=== PATIENT | female | born 2000 | race Caucasian/White ===

== ENCOUNTER 2019-06-06 20:59 | Emergency (ER) | END 2019-06-07 00:16 | disposition left against medical advice (07) | LOC: ER 20:59 | DX: Z53.21 Procedure and treatment not carried out due to patient leaving prior to being seen by health care provider (principal) ==

== ENCOUNTER 2020-02-20 19:52 | Emergency (ER) | payer OTHER ==
--- NOTE | 2020-02-20 20:14 | ER Document Report ---
ED Medical Screen (RME) - General Chief Complaint: Urinary Problem Stated Complaint: URINARY COMPLAINTS/21 WEEKS Time Seen by Provider: 02/20/20 20:08 Mode of Arrival: Ambulatory Information source: Patient Notes: 19-year-old female presented to ED for complaint of right flank pain. She [facility] 10 [facility]. She states she has been going over there since she was 10 weeks . She is 21 weeks 6 days . She states that they have put her on 4 different antibiotics. She states every time she goes to the emergency room they do urine and tell her to UTI. She states have not drawn any blood have not done any other testing. I have ordered blood urine and a renal ultrasound and she will be seen by another provider. She states she does have a history of UTIs cholecystectomy appendectomy and 2 C-sections. She states she is not having any vaginal bleeding or any vaginal discharge. She states she does have frequency urgency and pain with urination. I have greeted and performed a rapid initial assessment of this patient. A comprehensive ED assessment and evaluation of the patient, analysis of test results and completion of medical decision making process will be conducted by an additional ED providers. - Related Data Allergies/Adverse Reactions: latex Allergy (Verified 02/20/20 20:09) Physical Exam - Vital signs Vitals: Temp Pulse BP Pulse Ox 98.7 F 101 H 133/80 H 99 02/20/20 20:07 02/20/20 20:07 02/20/20 20:07 02/20/20 20:07 Course - Vital Signs Vital signs: Temp Pulse Resp BP Pulse Ox 98.7 F 101 H 133/80 H 99 02/20/20 20:07 02/20/20 20:07 02/20/20 20:07 02/20/20 20:07
--- NOTE | 2020-02-20 21:20 | RADIOLOGY REPORT (SQ) ---
EXAM DESCRIPTION: RadLex: US RETROPERITONEUM CLINICAL HISTORY: 19 years Female; Right flank pain UTI for multiple weeks; TECHNIQUE: Bilateral renal ultrasound was performed. COMPARISON: None. FINDINGS: Visualized portions of IVC and aorta are unremarkable. Right kidney: 12.8 x 4.8 x 5 cm. No hydronephrosis or shadowing calculi. Left kidney: 12.6 x 6.2 x 5.1 cm. No hydronephrosis or shadowing calculi. Bladder: Nondistended, 25 mL Spleen is enlarged, 14.9 cm long. IMPRESSION: 1. Normal renal sonogram. 2. Splenomegaly
[2020-02-20 21:42] LABS: ABSOLUTE EOSINOPHILS # (AUTO) 0.2 10^3/uL (0.0-0.6); ABSOLUTE LYMPHOCYTES (AUTO) 1.8 10^3/uL (0.5-4.7); ABSOLUTE MONOCYTES (AUTO) 0.4 10^3/uL (0.1-1.4); ABSOLUTE NEUT (AUTO) 5.4 10^3/uL (1.7-8.2); BASOPHILS % (AUTO) 0.2 % (0-2); EOSINOPHILS % (AUTO) 2.6 % (0-6); HEMOGLOBIN 12.7 g/dL (12.0-15.5); LYMPHOCYTES % (AUTO) 22.8 % (13-45); MEAN CORPUSCULAR HEMOGLOBIN 30.8 pg (27.0-33.4); MEAN CORPUSCULAR HGB CONC 34.5 g/dL (32.0-36.0); MEAN CORPUSCULAR VOLUME 90 fl (80-97); MONOCYTES % (AUTO) 5.3 % (3-13); PLATELET COUNT 165 10^3/uL (150-450); RED BLOOD COUNT 4.13 10^6/uL (3.72-5.28); RED CELL DISTRIBUTION WIDTH 14.2 % (11.5-14.0); SEGMENTED NEUTROPHILS % (AUTO) 69.1 % (42-78); TOTAL CELLS COUNTED % (AUTO) 100 %; WHITE BLOOD COUNT 7.9 10^3/uL (4.0-10.5)
[2020-02-20 21:55] LABS: APPEARANCE,URINE CLEAR; BILIRUBIN,URINE NEGATIVE (NEGATIVE); COLOR,URINE YELLOW; GLUCOSE, URINE NEGATIVE (NEGATIVE); KETONES,URINE NEGATIVE (NEGATIVE); LEUKOCYTE ESTERASE,URINE TRACE (NEGATIVE); NITRITE,URINE NEGATIVE (NEGATIVE); PROTEIN,URINE NEGATIVE (NEGATIVE); URINE SPECIFIC GRAVITY 1.026
[2020-02-20 21:59] LABS: ALBUMIN 3.7 g/dL (3.5-5.0); ALKALINE PHOSPHATASE 55 U/L (38-126); ANION GAP 7 (5-19); ASPARTATE AMINO TRANSFERASE 21 U/L (14-36); BILIRUBIN,DIRECT 0.3 mg/dL (0.0-0.4); BILIRUBIN,TOTAL 0.5 mg/dL (0.2-1.3); BLOOD UREA NITROGEN 6 mg/dL (7-20); CALCIUM 8.8 mg/dL (8.4-10.2); CARBON DIOXIDE 23 mmol/L (22-30); CHLORIDE 105 mmol/L (98-107); GLUCOSE 90 mg/dL (75-110); POTASSIUM 4.4 mmol/L (3.6-5.0); TOTAL PROTEIN 6.6 g/dL (6.3-8.2)
--- NOTE | 2020-02-21 02:12 | RADIOLOGY REPORT (SQ) ---
Obstetric ultrasound: 02/21/2020 1:09 AM CDT HISTORY: 19-year-old female with , lower back pain. TECHNIQUE: Multiple grayscale and color Doppler images of the pelvis were obtained transabdominally. COMPARISON: None available for this . FINDINGS: A single intrauterine gestation is seen, which is cephalic in position. The placenta is posterior in location, and may be low lying.. The cervix measures at least 4.5 cm in length. The estimated heart rate is approximately 145 bpm. KIRIT is subjectively within normal limits the deepest vertical pocket of at least 3.8 cm. The following measurements were obtained: BPD: 4.4 cm, consistent with 19 weeks and 1 day(s). HC: 16.5 cm, consistent with 19 weeks and 2 day(s). AC: 13.8 cm, consistent with 19 weeks and 2 day(s). FL: 3.0 cm, consistent with 19 weeks and 2 day(s). The estimated weight is approximately 281 g +/- 15%. The fetus overall measures at the 87%. The fetus measures at 19 weeks and 2 day(s) by AUA, consistent with an estimated due date of 07/15/20. IMPRESSION: A single, live intrauterine gestation is seen which is currently cephalic in position. The fetus measures at 19 weeks and 2 day(s) by AUA, consistent with an estimated due date of 07/15/20. 2.Detailed anatomic assessment was not performed. 3. The placenta may be low lying and can be followed on subsequent imaging. Interval follow-up with an obstetric care provider is recommended.
--- NOTE | 2020-02-21 05:04 | ER Document Report ---
ED General - General Chief Complaint: Flank Pain Stated Complaint: URINARY COMPLAINTS/21 WEEKS Time Seen by Provider: 02/20/20 20:08 Primary Care Provider: [facility] [Provider Group] - Follow up as needed Mode of Arrival: Ambulatory Information source: Patient - HPI Notes: Patient is a 19-year-old female who is 22 weeks and presents with right flank pain for the past week. Patient has been seen at [facility] multiple times in the past 10 weeks for urinary symptoms. She was diagnosed with a UTI and has been treated with 4 different antibiotics over this time. She continues to have urinary symptoms of dysuria, urinary pressure, urinary frequency, and voiding small amounts. Patient had an episode of vaginal bleeding 2 weeks ago but has not had any bleeding since. She denies any vaginal discharge. Patient reports nausea but attributes this to her . She denies fever, chills, nausea, diarrhea, chest pain, shortness of breath. Patient is a former smoker but she denies any alcohol or drug use. Patient has a history of cholecystectomy and appendectomy. - Related Data Allergies/Adverse Reactions: latex Allergy (Verified 02/20/20 20:09) Past Medical History - General Information source: Patient - Social History Smoking Status: Former Smoker Chew tobacco use (# tins/day): No Frequency of alcohol use: None Drug Abuse: None Family History: Reviewed & Not Pertinent Past Surgical History: Reports: Hx Appendectomy, Hx Section, Hx Cholecystectomy Review of Systems - Review of Systems Constitutional: No symptoms reported EENT: No symptoms reported Cardiovascular: No symptoms reported Respiratory: No symptoms reported Gastrointestinal: See HPI Genitourinary: See HPI Female Genitourinary: No symptoms reported Musculoskeletal: No symptoms reported Skin: No symptoms reported Hematologic/Lymphatic: No symptoms reported Neurological/Psychological: No symptoms reported Physical Exam - Vital signs Vitals: Temp Pulse BP Pulse Ox 98.7 F 101 H 133/80 H 99 02/20/20 20:07 02/20/20 20:07 02/20/20 20:07 02/20/20 20:07 - Notes Notes: PHYSICAL EXAMINATION: VITALS: Vitals reviewed and within normal limits. GENERAL: Well-appearing, well-nourished and in no acute distress. HEAD: Atraumatic, normocephalic. EYES: Pupils equal round and reactive to light, extraocular movements intact, sclera anicteric, conjunctiva are normal. ENT: nares patent, oropharynx clear without exudates. Dry mucous membranes. NECK: Normal range of motion, supple without lymphadenopathy. LUNGS: Breath sounds clear to auscultation bilaterally and equal. No wheezes rales or rhonchi. HEART: Regular rate and rhythm without murmurs. ABDOMEN: Diffuse tenderness to the right abdomen and flank. Soft and normoactive bowel sounds. No guarding, no rebound. No masses appreciated. Negative CVA tenderness EXTREMITIES: Normal range of motion, no pitting or edema. No cyanosis. NEUROLOGICAL: No focal neurological deficits. Moves all extremities spontaneous ly and on command. PSYCH: Normal mood, normal affect. SKIN: Warm, Dry, normal turgor, no rashes or lesions noted. Course - Re-evaluation Re-evalutation: Patient is a 19-year-old female who is 22 weeks and presents for right flank pain for the past week. On exam, diffuse tenderness is noted to the right abdomen. Patient is afebrile and vital signs are normal. Renal ultrasound is negative with no signs of hydronephrosis or kidney stones. OB ultrasound shows 19-week and 2-day intrauterine , no signs of placenta previa. Lab work is unremarkable with normal WBC and normal UA. Discussed results with patient and believe her symptoms are bowel-related. Patient will be discharged home with prescriptions for Pepcid and Reglan. Return precautions given. - Vital Signs Vital signs: Temp Pulse Resp BP Pulse Ox 98.4 F 68 16 137/84 H 98 02/21/20 06:47 02/21/20 06:47 02/21/20 06:47 02/21/20 06:47 02/21/20 06:47 - Laboratory Result Diagrams: 02/20/20 21:00 02/20/20 21:00 Laboratory results interpreted by me: 02/20/20 02/20/20 02/20/20 21:00 21:00 21:00 RDW 14.2 H Sodium 135.4 L BUN 6 L Creatinine 0.41 L Urine Urobilinogen 2.0 H Ur Leukocyte Esterase TRACE H Discharge - Discharge Clinical Impression: Right flank pain, Vomiting affecting Abdominal pain Qualifiers: Abdominal location: generalized Qualified Code(s): R10.84 - Generalized abdominal pain Condition: Stable Disposition: HOME, SELF-CARE Additional Instructions: Take prescriptions as prescribed. Can take benadryl 25mg as needed for supplement for nausea. Return if symptoms worsen or if you begin to have fever, persistent vomiting, severe abdominal pain. Follow up with [facility] and primary care physician. Abdominal Pain There are many causes of abdominal pain. Pain can mean a serious problem requiring surgery (such as appendicitis). It can also be an innocent problem that goes away on its own (such as a viral infection). Often, time must pass to determine the cause of pain. The physician does not feel that hospitalization is necessary, at present. Things may change within the next 24 hours. Call the doctor or come back for re- examination if any problems occur, such as: (1) Pain that becomes more severe, steady, or becomes concentrated in one specific area. Also, pain that is more severe with movement or coughing. (2) Vomiting that persists or becomes more frequent. (3) Blood in the vomitus, urine, or bowel movements. Blood in the stool may have a tarry or black appearance. (4) Shaking chills or fever greater than 100 degrees F. (5) The abdomen becomes more distended or swollen. (6) Bowel movements cease. (7) Failure to improve as expected. Prescriptions: Famotidine [Pepcid 20 mg Tablet] 20 mg PO BID #12 tablet Metoclopramide HCl [Reglan] 1 - 2 tab PO Q6 PRN #20 tablet PRN Reason: Referrals: [facility] [Provider Group] - Follow up as needed
[2020-02-21] MEDS ORDERED: METOCLOPRAMIDE HCL 10 MG TABLET PO ONE (05:17)
[2020-02-21] MEDS ORDERED: FAMOTIDINE 20 MG TABLET PO ONE (05:17)
[2020-02-21 07:31] VITALS: BP 107/62
== END 2020-02-21 07:31 | disposition home or self-care (01) ==
LOC: ER 19:52
DX: O21.8 Other vomiting complicating pregnancy (principal); R10.84 Generalized abdominal pain; R39.89 Other symptoms and signs involving the genitourinary system; Z3A.22 22 weeks gestation of pregnancy
CPT/HCPCS: 36415; 76770; 76815; 80053; 81001; 83690; 85025; 87086; 99284